=== PATIENT | female | born 1940 | race Caucasian/White ===

== ENCOUNTER 2021-01-07 05:44 | Day surgery (SDC) | payer MEDICARE, BC ==
[2021-01-06 11:24] VITALS: BMI 25.7
[2021-01-07] MEDS ORDERED: Lidocaine 1% MPF 2 ML VIAL ONE (06:29)
[2021-01-07] MEDS ORDERED: Lidocaine 1% PF 5 ML VIAL ONE (07:30)
[2021-01-07] MEDS ORDERED: PROPOFOL 20 ML ONE (07:30)
== END 2021-01-07 09:00 | disposition home or self-care (01) ==
LOC: CSHSDC 05:44
PROVIDERS: ATTEND Internal Medicine Gastroenterology
DX: K29.50 Unspecified chronic gastritis without bleeding (principal); B96.81 Helicobacter pylori [H. pylori] as the cause of diseases classified elsewhere; K31.7 Polyp of stomach and duodenum; Z85.028 Personal history of other malignant neoplasm of stomach
CPT/HCPCS: 88305; 88312; J2704

== ENCOUNTER 2021-06-15 11:34 | Outpatient (CLI) | payer MEDICARE, BC | END 2021-06-15 11:35 | disposition home or self-care (01) | LOC: CSHMAMMO 11:34 | PROVIDERS: ATTEND Family Medicine | DX: Q83.8 Other congenital malformations of breast (principal) | CPT/HCPCS: 77065; G0279 ==

== ENCOUNTER 2021-11-09 11:06 | Inpatient (IN) | payer MEDICARE, BC ==
[2021-11-09 12:45] LABS: Hemoglobin 12.1 g/dL (12.0-15.5); Mean Corpuscular HGB CONC 31.1 g/dL (32.0-36.0); Mean Corpuscular Hemoglobin 28.1 pg (27.0-33.0); Mean Corpuscular Volume 90.3 fl (81.6-98.3); Mean Platelet Volume 11.3 fl (7.4-10.4); Platelet Count 413 10x3/uL (150-450); RBC Distribution Width 15.8 % (11.5-14.5); Red Blood Cell (RBC) Count 4.31 10x6/uL (3.90-5.03); White Blood Cell (WBC) Count 17.5 10x3/uL (3.5-10.5)
[2021-11-09 12:46] LABS: MDiff Complete? YES
[2021-11-09 13:06] LABS: ALT (SGPT) 21 U/L (8-55); AST (SGOT) 20 U/L (5-34); Albumin 2.9 g/dL (3.4-4.8); Alkaline Phosphatase 105 U/L (40-110); Anion Gap 16 mmol/L (10-20); BUN (Urea Nitrogen) 38 mg/dL (9.8-20.1); Band 4 % (5-11); Bilirubin, Total 0.3 mg/dL (0.2-1.2); Calc. Creatinine Clearance 0 mL/min (70-130); Calcium 7.6 mg/dL (7.8-10.44); Carbon Dioxide 16 mmol/L (23-31); Chloride 111 mmol/L (98-107); Globulin 2.2 g/dL (2.4-3.5); Glucose 132 mg/dL (83-110); Lymphocytes 3 % (21-51); Metamyelocyte 1 % (0-0); Monocytes 3 % (0-10); Neutrophil 89 % (42-75); Platelet Morphology Comment Appears Increased; Potassium 4.4 mmol/L (3.5-5.1); Protein, Total 5.1 g/dL (5.8-8.1); Sodium 139 mmol/L (136-145); Toxic Granulation SLIGHT
[2021-11-09] MEDS ORDERED: Vancomycin 25 MG/ML Oral SOLN PO SCH (13:45)
[2021-11-09 16:40] LABS: Bilirubin Neg (Negative); Blood, Urine 10 (Negative); Clarity Clear (Clear); Glucose, Urine (Dipstick) Normal (Negative); Ketone, Urine Negative (Negative); Leukocyte Negative (Negative); Nitrite Negative (Negative); Protein, Urine (Dipstick) 30 mg/dl (Neg-Trace); Urobilinogen Normal mg/dL (Less than 2)
[2021-11-09 16:46] LABS: Bacteria/HPF None Seen HPF (None Seen); WBC/HPF 0-3 HPF (0-3)
[2021-11-09] MEDS ORDERED: Vancomycin 1 GM in Premix Bag 1 BAG IVPB SCH (18:15)
[2021-11-09] MEDS ORDERED: Acetaminophen 650 MG Suppository PR PRN (18:16)
[2021-11-09] MEDS ORDERED: Acetaminophen 325 MG TAB ONE (18:41)
[2021-11-09 19:21] LABS: Lactic Acid 2.3 mmol/L (0.5-2.2)
[2021-11-09 19:57] VITALS: BMI 25.9
[2021-11-09] MEDS ORDERED: Cefepime 2 GM in Sodium Chloride 0.9% 100 ML IVPB SCH (21:00)
[2021-11-09] MEDS: Vancomycin 25 MG/ML Oral SOLN PO SCH (21:43)
[2021-11-09 21:45] LABS: SARS-CoV-2 PCR by NAA Not Detected (NotDetected)
[2021-11-09] MEDS: Sodium Chloride 0.9% 1,000 ML IV SCH (21:47)
[2021-11-10] MEDS: Acetaminophen 325 MG TAB PO PRN ×3 (01:06→15:57)
[2021-11-10] MEDS: Vancomycin 25 MG/ML Oral SOLN PO SCH ×4 (02:56→20:45)
[2021-11-10 05:01] LABS: Anion Gap 12 mmol/L (10-20); BUN (Urea Nitrogen) 29 mg/dL (9.8-20.1); Calc. Creatinine Clearance 37 mL/min (70-130); Carbon Dioxide 16 mmol/L (23-31); Chloride 109 mmol/L (98-107); Glucose 140 mg/dL (83-110); Potassium 3.7 mmol/L (3.5-5.1); Sodium 133 mmol/L (136-145)
[2021-11-10 06:51] LABS: Hemoglobin 10.7 g/dL (12.0-15.5); Mean Corpuscular HGB CONC 32.1 g/dL (32.0-36.0); Mean Corpuscular Hemoglobin 28.7 pg (27.0-33.0); Mean Corpuscular Volume 89.3 fl (81.6-98.3); Mean Platelet Volume 11.4 fl (7.4-10.4); Platelet Count 359 10x3/uL (150-450); RBC Distribution Width 15.4 % (11.5-14.5); Red Blood Cell (RBC) Count 3.73 10x6/uL (3.90-5.03); White Blood Cell (WBC) Count 18.2 10x3/uL (3.5-10.5)
[2021-11-10 06:52] LABS: MDiff Complete? YES
[2021-11-10 06:55] LABS: Band 10 % (5-11); Lymphocytes 5 % (21-51); Monocytes 7 % (0-10); Neutrophil 78 % (42-75)
[2021-11-10 06:56] LABS: Platelet Morphology Comment Appears Adequate; RBC Morphology Normal
[2021-11-10] MEDS: Sodium Chloride 0.9% 1,000 ML IV SCH ×4 (09:32→20:51)
[2021-11-11] MEDS: Vancomycin 25 MG/ML Oral SOLN PO SCH ×4 (03:00→20:57)
[2021-11-11 06:03] LABS: Anion Gap 12 mmol/L (10-20); BUN (Urea Nitrogen) 16 mg/dL (9.8-20.1); Calc. Creatinine Clearance 49 mL/min (70-130); Carbon Dioxide 16 mmol/L (23-31); Chloride 110 mmol/L (98-107); Glucose 130 mg/dL (83-110); Potassium 3.5 mmol/L (3.5-5.1); Sodium 134 mmol/L (136-145)
[2021-11-11 07:01] LABS: Hemoglobin 10.9 g/dL (12.0-15.5); Mean Corpuscular HGB CONC 31.9 g/dL (32.0-36.0); Mean Corpuscular Hemoglobin 28.2 pg (27.0-33.0); Mean Corpuscular Volume 88.6 fl (81.6-98.3); Mean Platelet Volume 11.2 fl (7.4-10.4); Platelet Count 356 10x3/uL (150-450); RBC Distribution Width 15.5 % (11.5-14.5); Red Blood Cell (RBC) Count 3.86 10x6/uL (3.90-5.03)
[2021-11-11 07:16] LABS: MDiff Complete? YES
[2021-11-11 08:00] LABS: Band 12 % (5-11); Lymphocytes 2 % (21-51); Monocytes 5 % (0-10); Neutrophil 81 % (42-75); Nucleated RBC 1 % (0); Platelet Morphology Comment Appears Adequate
[2021-11-11 08:02] LABS: RBC Morphology NORMAL
[2021-11-11] MEDS: Sodium Chloride 0.9% 1,000 ML IV SCH ×3 (08:50→21:00)
[2021-11-11] MEDS: Metoprolol Tartrate 25 MG TAB PO SCH ×3 (08:50→21:46)
[2021-11-11] MEDS: Acetaminophen 325 MG TAB PO PRN (16:30)
[2021-11-11] MEDS: Atorvastatin Calcium 40 MG TAB PO SCH (20:58)
[2021-11-11] MEDS ORDERED: busPIRone HCl 15 MG TAB PO SCH (21:00)
[2021-11-11] MEDS ORDERED: Pantoprazole 40 MG VIAL IVP SCH (23:45)
[2021-11-12] MEDS: Acetaminophen 325 MG TAB PO PRN ×2 (00:49→22:02)
[2021-11-12] MEDS: Vancomycin 25 MG/ML Oral SOLN PO SCH ×5 (03:59→22:04)
[2021-11-12 04:49] LABS: Hemoglobin 10.1 g/dL (12.0-15.5); Mean Corpuscular HGB CONC 30.8 g/dL (32.0-36.0); Mean Corpuscular Hemoglobin 27.8 pg (27.0-33.0); Mean Corpuscular Volume 90.4 fl (81.6-98.3); Mean Platelet Volume 10.8 fl (7.4-10.4); Platelet Count 329 10x3/uL (150-450); RBC Distribution Width 15.6 % (11.5-14.5); Red Blood Cell (RBC) Count 3.63 10x6/uL (3.90-5.03); White Blood Cell (WBC) Count 23.2 10x3/uL (3.5-10.5)
[2021-11-12 05:03] LABS: Anion Gap 12 mmol/L (10-20); BUN (Urea Nitrogen) 13 mg/dL (9.8-20.1); Calc. Creatinine Clearance 52 mL/min (70-130); Calcium 6.9 mg/dL (7.8-10.44); Carbon Dioxide 13 mmol/L (23-31); Chloride 113 mmol/L (98-107); Glucose 146 mg/dL (83-110); Magnesium 1.8 mg/dL (1.6-2.6); Potassium 3.7 mmol/L (3.5-5.1); Sodium 134 mmol/L (136-145)
[2021-11-12 05:05] LABS: ALT (SGPT) 12 U/L (8-55); AST (SGOT) 19 U/L (5-34); Alkaline Phosphatase 88 U/L (40-110); Bilirubin, Direct 0.1 mg/dL (0.1-0.3); Bilirubin, Total 0.3 mg/dL (0.2-1.2); Phosphorus 2.1 mg/dL (2.3-4.7); Protein, Total 3.9 g/dL (5.8-8.1)
[2021-11-12 05:21] LABS: MDiff Complete? YES
[2021-11-12 05:24] LABS: Band 18 % (5-11); Lymphocytes 3 % (21-51); Monocytes 4 % (0-10); Neutrophil 75 % (42-75)
[2021-11-12 05:26] LABS: Platelet Morphology Comment Appears Adequate; RBC Morphology Normal
[2021-11-12] MEDS ORDERED: Levothyroxine Sodium 50 MCG TAB PO SCH (06:00)
[2021-11-12] MEDS: Sodium Chloride 0.9% 1,000 ML IV SCH ×2 (06:15→09:37)
[2021-11-12] MEDS ORDERED: Enoxaparin Sodium 40 MG/0.4 ML SYRINGE SC SCH (09:00)
[2021-11-12] MEDS ORDERED: Escitalopram Oxalate 10 mg Tablet PO SCH (09:00)
[2021-11-12] MEDS: Escitalopram Oxalate 10 mg Tablet PO SCH (09:36)
[2021-11-12] MEDS: Metoprolol Tartrate 25 MG TAB PO SCH ×2 (09:36→22:03)
[2021-11-12] MEDS: Albumin 25% 25 GM/100 ML BOT IVPB SCH ×3 (09:36→22:03)
[2021-11-12] MEDS: busPIRone HCl 15 MG TAB PO SCH ×2 (09:36→22:02)
[2021-11-12] MEDS: Lactated Ringer's 1,000 ML IV SCH (14:25)
[2021-11-12 14:38] LABS: Actual Bicarbonate (HCO3a) 15.2 mEq/L (22-28); Base Excess (BEa) -8.1 mEq/L (-2.0 to +3.0); CO2 Tension 24.1 mmHg (35.0-45.0); Calcium, Ionized (arterial) 1.09 mmol/L (1.12-1.30); Carboxyhemoglobin (COHb) 1.5 gm% (0.0-3.0); Hemoglobin (Hb) 9.3 g/dL (12.0-16.0); O2 Tension (PaO2), arterial 86.3 mmHg (> 60.0); Potassium - ABG Lab 3.1 mmol/L (3.70-5.30); Puncture Site RRA; pH, Arterial 7.42 (7.35-7.45)
[2021-11-12 14:42] LABS: ALV-art Gradient 33.305 mmHg (0-20)
[2021-11-12 14:43] LABS: Lactic Acid 2.4 mmol/L (0.5-2.2)
[2021-11-12] MEDS: Gabapentin 300 MG CAP PO SCH (22:01)
[2021-11-12] MEDS: Pantoprazole 40 MG VIAL IVP SCH (22:01)
[2021-11-12] MEDS: Atorvastatin Calcium 40 MG TAB PO SCH (22:03)
[2021-11-13] MEDS: Lactated Ringer's 1,000 ML IV SCH ×2 (01:24→08:56)
[2021-11-13] MEDS: Albumin 25% 25 GM/100 ML BOT IVPB SCH (02:50)
[2021-11-13] MEDS: Vancomycin 25 MG/ML Oral SOLN PO SCH ×4 (02:50→22:22)
[2021-11-13] MEDS: Acetaminophen 325 MG TAB PO PRN ×2 (03:37→21:41)
[2021-11-13 04:33] LABS: Anion Gap 11 mmol/L (10-20); BUN (Urea Nitrogen) 8 mg/dL (9.8-20.1); Calc. Creatinine Clearance 54 mL/min (70-130); Calcium 7.1 mg/dL (7.8-10.44); Carbon Dioxide 15 mmol/L (23-31); Chloride 113 mmol/L (98-107); Glucose 142 mg/dL (83-110); Magnesium 1.9 mg/dL (1.6-2.6); Sodium 136 mmol/L (136-145)
[2021-11-13 04:52] LABS: ALT (SGPT) 7 U/L (8-55); AST (SGOT) 15 U/L (5-34); Albumin 3.1 g/dL (3.4-4.8); Alkaline Phosphatase 53 U/L (40-110); Bilirubin, Direct 0.3 mg/dL (0.1-0.3); Bilirubin, Total 0.6 mg/dL (0.2-1.2); Phosphorus 1.3 mg/dL (2.3-4.7); Protein, Total 4.4 g/dL (5.8-8.1)
[2021-11-13 04:57] LABS: Hemoglobin 8.8 g/dL (12.0-15.5); Mean Corpuscular Volume 90.4 fl (81.6-98.3); Mean Platelet Volume 10.5 fl (7.4-10.4); Platelet Count 301 10x3/uL (150-450); RBC Distribution Width 15.6 % (11.5-14.5); Red Blood Cell (RBC) Count 3.14 10x6/uL (3.90-5.03); White Blood Cell (WBC) Count 14.5 10x3/uL (3.5-10.5)
[2021-11-13 04:59] LABS: MDiff Complete? YES
[2021-11-13 05:42] LABS: Band 10 % (5-11); Lymphocytes 6 % (21-51); Monocytes 5 % (0-10); Neutrophil 79 % (42-75)
[2021-11-13] MEDS ORDERED: Potassium Phosphate 30 MMOL in Sodium Chloride 0.9% 500 ML IVPB SCH (06:00)
[2021-11-13] MEDS: Levothyroxine Sodium 50 MCG TAB PO SCH (06:09)
[2021-11-13] MEDS: Metoprolol Tartrate 25 MG TAB PO SCH ×2 (08:56→21:42)
[2021-11-13] MEDS: Escitalopram Oxalate 10 mg Tablet PO SCH (08:56)
[2021-11-13] MEDS: busPIRone HCl 15 MG TAB PO SCH ×2 (08:57→21:42)
[2021-11-13] MEDS ORDERED: diphenhydrAMINE 12.5 MG in Sodium Chloride 0.9% 50 ML IVPB PRN (12:09)
[2021-11-13] MEDS: diphenhydrAMINE 50 MG/ML VIAL IVP PRN ×2 (15:03→21:37)
[2021-11-13] MEDS: metroNIDAZOLE 500 MG in Premix Bag 1 BAG IVPB SCH ×2 (15:04→21:41)
[2021-11-13] MEDS ORDERED: Furosemide 20 MG/2 ML VIAL SLOW IVP SCH (15:15)
[2021-11-13] MEDS ORDERED: Potassium Chloride 20 MEQ TAB PO SCH (15:30)
[2021-11-13] MEDS: Gabapentin 300 MG CAP PO SCH (21:41)
[2021-11-13] MEDS: Atorvastatin Calcium 40 MG TAB PO SCH (21:42)
[2021-11-13] MEDS: Pantoprazole 40 MG VIAL IVP SCH (21:43)
[2021-11-14] MEDS: metroNIDAZOLE 500 MG in Premix Bag 1 BAG IVPB SCH ×3 (04:17→21:03)
[2021-11-14] MEDS: Vancomycin 25 MG/ML Oral SOLN PO SCH ×4 (04:17→21:04)
[2021-11-14] MEDS: diphenhydrAMINE 50 MG/ML VIAL IVP PRN (04:20)
[2021-11-14 05:05] LABS: Hemoglobin 10.6 g/dL (12.0-15.5); Mean Corpuscular HGB CONC 32.2 g/dL (32.0-36.0); Mean Corpuscular Hemoglobin 28.3 pg (27.0-33.0); Mean Corpuscular Volume 87.7 fl (81.6-98.3); Mean Platelet Volume 9.9 fl (7.4-10.4); Platelet Count 345 10x3/uL (150-450); RBC Distribution Width 15.6 % (11.5-14.5); Red Blood Cell (RBC) Count 3.75 10x6/uL (3.90-5.03)
[2021-11-14 05:22] LABS: Anion Gap 12 mmol/L (10-20); BUN (Urea Nitrogen) 6 mg/dL (9.8-20.1); Calc. Creatinine Clearance 54 mL/min (70-130); Calcium 7.3 mg/dL (7.8-10.44); Carbon Dioxide 17 mmol/L (23-31); Chloride 111 mmol/L (98-107); Glucose 120 mg/dL (83-110); Magnesium 1.7 mg/dL (1.6-2.6); Potassium 3.2 mmol/L (3.5-5.1); Sodium 137 mmol/L (136-145)
[2021-11-14 05:30] LABS: ALT (SGPT) 9 U/L (8-55); AST (SGOT) 19 U/L (5-34); Alkaline Phosphatase 60 U/L (40-110); Bilirubin, Direct 0.3 mg/dL (0.1-0.3); Bilirubin, Total 0.6 mg/dL (0.2-1.2); Phosphorus 1.8 mg/dL (2.3-4.7); Protein, Total 4.6 g/dL (5.8-8.1)
[2021-11-14 05:58] LABS: MDiff Complete? YES
[2021-11-14 06:01] LABS: Band 23 % (5-11); Eosinophils 4 % (0-10); Lymphocytes 2 % (21-51); Metamyelocyte 2 % (0-0); Monocytes 5 % (0-10); Myelocyte 1 % (0-0); Neutrophil 62 % (42-75); Reactive Lymphocytes 1 % (0-10)
[2021-11-14 06:02] LABS: Dohle Bodies SLIGHT; Platelet Morphology Comment Appears Adequate; Toxic Granulation SLIGHT
[2021-11-14 06:03] LABS: RBC Morphology Normal
[2021-11-14] MEDS ORDERED: Potassium Phosphate 30 MMOL in Sodium Chloride 0.9% 500 ML IVPB SCH (06:15)
[2021-11-14] MEDS: Levothyroxine Sodium 50 MCG TAB PO SCH (06:21)
[2021-11-14] MEDS: Acetaminophen 325 MG TAB PO PRN ×3 (06:21→22:54)
[2021-11-14] MEDS: Metoprolol Tartrate 25 MG TAB PO SCH ×2 (08:48→21:04)
[2021-11-14] MEDS: busPIRone HCl 15 MG TAB PO SCH ×2 (08:48→21:05)
[2021-11-14] MEDS: Escitalopram Oxalate 10 mg Tablet PO SCH (08:48)
[2021-11-14] MEDS: Gabapentin 300 MG CAP PO SCH (21:04)
[2021-11-14] MEDS: Atorvastatin Calcium 40 MG TAB PO SCH (21:05)
[2021-11-15] MEDS: metroNIDAZOLE 500 MG in Premix Bag 1 BAG IVPB SCH ×3 (04:08→19:46)
[2021-11-15] MEDS: Levothyroxine Sodium 50 MCG TAB PO SCH (05:32)
[2021-11-15] MEDS: Vancomycin 25 MG/ML Oral SOLN PO SCH ×4 (05:32→21:54)
[2021-11-15 05:36] LABS: Hemoglobin 10.3 g/dL (12.0-15.5); Mean Corpuscular HGB CONC 32.8 g/dL (32.0-36.0); Mean Corpuscular Hemoglobin 28.3 pg (27.0-33.0); Mean Corpuscular Volume 86.3 fl (81.6-98.3); Mean Platelet Volume 9.9 fl (7.4-10.4); Platelet Count 343 10x3/uL (150-450); RBC Distribution Width 15.6 % (11.5-14.5); Red Blood Cell (RBC) Count 3.64 10x6/uL (3.90-5.03)
[2021-11-15] MEDS: Acetaminophen 325 MG TAB PO PRN ×2 (05:53→14:06)
[2021-11-15 05:56] LABS: MDiff Complete? YES
[2021-11-15 06:02] LABS: Band 14 % (5-11); Eosinophils 7 % (0-10); Lymphocytes 10 % (21-51); Monocytes 2 % (0-10); Myelocyte 1 % (0-0); Neutrophil 61 % (42-75); Reactive Lymphocytes 5 % (0-10)
[2021-11-15 06:03] LABS: Anion Gap 9 mmol/L (10-20); BUN (Urea Nitrogen) 8 mg/dL (9.8-20.1); Calc. Creatinine Clearance 59 mL/min (70-130); Calcium 7.1 mg/dL (7.8-10.44); Carbon Dioxide 18 mmol/L (23-31); Chloride 112 mmol/L (98-107); Glucose 106 mg/dL (83-110); Magnesium 1.5 mg/dL (1.6-2.6); Phosphorus 2.7 mg/dL (2.3-4.7); Potassium 3.1 mmol/L (3.5-5.1); Sodium 136 mmol/L (136-145)
[2021-11-15 06:04] LABS: Platelet Morphology Comment Appears Adequate
[2021-11-15 06:05] LABS: Dohle Bodies SLIGHT; Large Platelets SLIGHT; RBC Morphology Normal
[2021-11-15] MEDS ORDERED: Magnesium Sulfate 2 GM in Sodium Chloride 0.9% 100 ML IVPB SCH (07:45)
[2021-11-15] MEDS ORDERED: Magnesium 2 GM/50 ML BAG (IN WATER) ONE (07:51)
[2021-11-15] MEDS: busPIRone HCl 15 MG TAB PO SCH ×2 (07:54→20:01)
[2021-11-15] MEDS: Metoprolol Tartrate 25 MG TAB PO SCH ×2 (07:55→20:01)
[2021-11-15] MEDS: Escitalopram Oxalate 10 mg Tablet PO SCH (07:55)
[2021-11-15] MEDS ORDERED: Magnesium 2 GM/50 ML 2 GM in Premix Bag 1 BAG IVPB SCH (08:00)
[2021-11-15] MEDS ORDERED: Potassium Chloride 20 MEQ TAB PO SCH (08:00)
[2021-11-15] MEDS: Ondansetron ODT 4 MG TAB PO PRN (15:58)
[2021-11-15] MEDS ORDERED: Electrolyte Replacement Protocol 1 EACH FS PRN (16:46)
[2021-11-15] MEDS: Gabapentin 300 MG CAP PO SCH (20:01)
[2021-11-15] MEDS: Atorvastatin Calcium 40 MG TAB PO SCH (20:01)
[2021-11-15] MEDS: Ondansetron PF 4 MG/2 ML Vial IVP PRN (21:54)
[2021-11-16] MEDS: Acetaminophen 325 MG TAB PO PRN ×3 (02:15→21:22)
[2021-11-16] MEDS: Vancomycin 25 MG/ML Oral SOLN PO SCH ×4 (03:48→21:24)
[2021-11-16] MEDS: metroNIDAZOLE 500 MG in Premix Bag 1 BAG IVPB SCH ×3 (03:48→21:24)
[2021-11-16 05:04] LABS: Magnesium 2.1 mg/dL (1.6-2.6); Potassium 4.2 mmol/L (3.5-5.1)
[2021-11-16] MEDS: Levothyroxine Sodium 50 MCG TAB PO SCH (05:43)
[2021-11-16] MEDS: Metoprolol Tartrate 25 MG TAB PO SCH ×2 (09:46→21:22)
[2021-11-16] MEDS: Escitalopram Oxalate 10 mg Tablet PO SCH (09:46)
[2021-11-16] MEDS: busPIRone HCl 15 MG TAB PO SCH ×2 (09:46→21:22)
[2021-11-16] MEDS: Ondansetron PF 4 MG/2 ML Vial IVP PRN ×2 (09:53→14:06)
[2021-11-16] MEDS ORDERED: Ketorolac Tromethamine 30 MG/ML VIAL IVP SCH (14:30)
[2021-11-16] MEDS: Gabapentin 300 MG CAP PO SCH (21:22)
[2021-11-16] MEDS: diphenhydrAMINE 50 MG/ML VIAL IVP PRN (21:23)
[2021-11-16] MEDS: Atorvastatin Calcium 40 MG TAB PO SCH (21:23)
[2021-11-16] MEDS: Ondansetron ODT 4 MG TAB PO PRN (21:23)
[2021-11-17] MEDS: metroNIDAZOLE 500 MG in Premix Bag 1 BAG IVPB SCH ×2 (03:54→11:37)
[2021-11-17] MEDS: Vancomycin 25 MG/ML Oral SOLN PO SCH ×3 (03:54→15:44)
[2021-11-17] MEDS: diphenhydrAMINE 50 MG/ML VIAL IVP PRN ×2 (03:54→11:37)
[2021-11-17 04:36] LABS: Hemoglobin 10.2 g/dL (12.0-15.5); Mean Corpuscular HGB CONC 31.1 g/dL (32.0-36.0); Mean Corpuscular Hemoglobin 27.8 pg (27.0-33.0); Mean Corpuscular Volume 89.4 fl (81.6-98.3); Platelet Count 451 10x3/uL (150-450); RBC Distribution Width 15.6 % (11.5-14.5); Red Blood Cell (RBC) Count 3.67 10x6/uL (3.90-5.03); White Blood Cell (WBC) Count 11.9 10x3/uL (3.5-10.5)
[2021-11-17 05:01] LABS: Anion Gap 10 mmol/L (10-20); BUN (Urea Nitrogen) 10 mg/dL (9.8-20.1); Calc. Creatinine Clearance 57 mL/min (70-130); Calcium 7.3 mg/dL (7.8-10.44); Carbon Dioxide 19 mmol/L (23-31); Chloride 109 mmol/L (98-107); Glucose 88 mg/dL (83-110); Magnesium 1.9 mg/dL (1.6-2.6); Phosphorus 2.9 mg/dL (2.3-4.7); Potassium 4.1 mmol/L (3.5-5.1); Sodium 134 mmol/L (136-145)
[2021-11-17] MEDS: Levothyroxine Sodium 50 MCG TAB PO SCH (06:02)
[2021-11-17 06:05] LABS: MDiff Complete? YES
[2021-11-17 06:07] LABS: Platelet Morphology Comment Appears Increased; Schistocytes SLIGHT = 2-5 cells (100X) (0-1/hpf)
[2021-11-17 06:15] LABS: Eosinophils 2 % (0-10); Lymphocytes 12 % (21-51); Monocytes 9 % (0-10); Neutrophil 76 % (42-75)
[2021-11-17] MEDS ORDERED: Magnesium 2 GM/50 ML 2 GM in Premix Bag 1 BAG IVPB SCH (07:00)
[2021-11-17] MEDS: Ondansetron PF 4 MG/2 ML Vial IVP PRN (09:17)
[2021-11-17] MEDS: busPIRone HCl 15 MG TAB PO SCH (09:26)
[2021-11-17] MEDS: Metoprolol Tartrate 25 MG TAB PO SCH (09:27)
[2021-11-17] MEDS: Escitalopram Oxalate 10 mg Tablet PO SCH (09:27)
[2021-11-17] MEDS: Acetaminophen 325 MG TAB PO PRN (11:26)
[2021-11-17 16:39] VITALS: BP 128/69; TEMP 97
[2021-11-17 20:52] LABS: SARS-CoV-2 PCR by NAA Not Detected (NotDetected)
== END 2021-11-17 16:48 | disposition home health service (06) | DRG 871 ==
LOC: CSHERS 11:06 → CSHTELE 19:45 → OBSVTOIN 19:45
PROVIDERS: ADMIT Internal Medicine; ATTEND Internal Medicine
DX: A41.4 Sepsis due to anaerobes (principal); G93.41 Metabolic encephalopathy; N17.9 Acute kidney failure, unspecified; A04.72 Enterocolitis due to Clostridium difficile, not specified as recurrent; E87.2 Acidosis; I48.11 Longstanding persistent atrial fibrillation; J81.1 Chronic pulmonary edema; R65.20 Severe sepsis without septic shock; Z20.822 Contact with and (suspected) exposure to COVID-19; I10 Essential (primary) hypertension; M81.0 Age-related osteoporosis without current pathological fracture; E78.5 Hyperlipidemia, unspecified; K21.9 Gastro-esophageal reflux disease without esophagitis; F41.9 Anxiety disorder, unspecified; F32.A Depression, unspecified; E03.9 Hypothyroidism, unspecified; E88.09 Other disorders of plasma-protein metabolism, not elsewhere classified; E87.6 Hypokalemia; E83.39 Other disorders of phosphorus metabolism; E86.0 Dehydration; Z90.49 Acquired absence of other specified parts of digestive tract; Z85.028 Personal history of other malignant neoplasm of stomach; Z88.8 Allergy status to other drugs, medicaments and biological substances; Z91.041 Radiographic dye allergy status; Z88.2 Allergy status to sulfonamides; Z79.82 Long term (current) use of aspirin; Z79.899 Other long term (current) drug therapy; Z79.890 Hormone replacement therapy; Z87.442 Personal history of urinary calculi; Z90.5 Acquired absence of kidney; Z98.51 Tubal ligation status; Z90.710 Acquired absence of both cervix and uterus; Z90.89 Acquired absence of other organs
CPT/HCPCS: 36415; 36600; 51701; 70450; 71045; 72125; 74176; 80048; 80053; 80076; 81003; 81015; 82805; 83605; 83735; 84100; 84132; 84443; 84484; 85025; 87040; 87045; 87046; 87324; 87427; 87449; 93005; 93306; 94760; C9113; G0378; J1200; J1885; J1940; J1956; J2405; J3475; J7030; J7050; J7120; P9047; Q0162; U0003; U0005

== ENCOUNTER 2022-12-18 17:03 | Outpatient (CLI) | payer MEDICARE, BC | END 2022-12-18 17:04 | disposition home or self-care (01) | LOC: CSHRAD 17:03 | PROVIDERS: ATTEND Family Medicine | DX: M54.50 Low back pain, unspecified (principal); M47.816 Spondylosis without myelopathy or radiculopathy, lumbar region; M41.86 Other forms of scoliosis, lumbar region; Q76.49 Other congenital malformations of spine, not associated with scoliosis | CPT/HCPCS: 72110 ==

== ENCOUNTER 2023-01-22 10:40 | Day surgery (SDC) | payer MEDICARE, BC ==
[2023-01-22] MEDS ORDERED: PROPOFOL 160 ML ONE (11:57)
== END 2023-01-22 13:17 | disposition home or self-care (01) ==
LOC: CSHSDC 10:40
PROVIDERS: ATTEND Urology
PROC: 0D758ZZ Dilation of Esophagus, Via Natural or Artificial Opening Endoscopic (ICD-10-PCS; principal; 2023-01-22)
PROC: 0DB68ZX Excision of Stomach, Via Natural or Artificial Opening Endoscopic, Diagnostic (ICD-10-PCS; 2023-01-22)
DX: K31.89 Other diseases of stomach and duodenum (principal); K21.9 Gastro-esophageal reflux disease without esophagitis; K25.9 Gastric ulcer, unspecified as acute or chronic, without hemorrhage or perforation; K29.70 Gastritis, unspecified, without bleeding; K31.7 Polyp of stomach and duodenum; I10 Essential (primary) hypertension; F32.A Depression, unspecified; M85.80 Other specified disorders of bone density and structure, unspecified site; F41.9 Anxiety disorder, unspecified; Z90.49 Acquired absence of other specified parts of digestive tract; Z85.028 Personal history of other malignant neoplasm of stomach; Z79.899 Other long term (current) drug therapy
CPT/HCPCS: 88305; J2704

== ENCOUNTER 2023-06-21 10:11 | Outpatient (CLI) | payer MEDICARE, BC | END 2023-06-21 10:12 | disposition home or self-care (01) | LOC: CSHMAMMO 10:11 | PROVIDERS: ATTEND Family Medicine | DX: Z12.31 Encounter for screening mammogram for malignant neoplasm of breast (principal); Z90.11 Acquired absence of right breast and nipple; Z90.12 Acquired absence of left breast and nipple | CPT/HCPCS: 77063; 77067 ==

== ENCOUNTER 2023-09-21 07:55 | Day surgery (SDC) | payer MEDICARE, BC ==
[2023-09-20 11:27] VITALS: BMI 24.6
[2023-09-21] MEDS ORDERED: PROPOFOL 20 ML ONE (11:23)
== END 2023-09-21 12:48 | disposition home or self-care (01) ==
LOC: CSHSDC 07:55
PROVIDERS: ATTEND Internal Medicine Gastroenterology
PROC: 0DB68ZX Excision of Stomach, Via Natural or Artificial Opening Endoscopic, Diagnostic (ICD-10-PCS; principal; 2023-09-21)
DX: K57.30 Diverticulosis of large intestine without perforation or abscess without bleeding (principal); K25.9 Gastric ulcer, unspecified as acute or chronic, without hemorrhage or perforation; K29.50 Unspecified chronic gastritis without bleeding; K31.7 Polyp of stomach and duodenum; K31.89 Other diseases of stomach and duodenum; K31.A0 Gastric intestinal metaplasia, unspecified; M19.90 Unspecified osteoarthritis, unspecified site; I10 Essential (primary) hypertension; E78.5 Hyperlipidemia, unspecified; F41.9 Anxiety disorder, unspecified; Z79.899 Other long term (current) drug therapy
CPT/HCPCS: 88305; 88342; J2704

== ENCOUNTER 2023-12-17 20:37 | Observation (INO) | payer MEDICARE, BC ==
[2023-12-17 22:03] LABS: #Monocytes 0.9 10x3/uL (0.0-1.1); #Neutrophils 13.8 10x3/uL (1.5-8.4); %Basophils 0.2 % (0.0-2.0); %Eosinophils 0.3 % (0.0-6.0); %Lymphocytes 5.2 % (18.0-47.0); %Monocytes 5.7 % (0.0-10.0); %Neutrophils 87.5 % (40.0-75.0); Hematocrit 31.3 % (34.9-44.5); Hemoglobin 9.8 g/dL (12.0-15.5); Mean Corpuscular HGB CONC 31.3 g/dL (32.0-36.0); Mean Corpuscular Hemoglobin 26.9 pg (27.0-33.0); Mean Platelet Volume 11.7 fl (7.4-10.4); Platelet Count 251 10x3/uL (150-450); RBC Distribution Width 16.3 % (11.5-14.5); Red Blood Cell (RBC) Count 3.64 10x6/uL (3.90-5.03); White Blood Cell (WBC) Count 15.8 10x3/uL (3.5-10.5)
[2023-12-17 22:19] LABS: ALT (SGPT) 201 U/L (8-55); AST (SGOT) 146 U/L (5-34); Albumin 3.4 g/dL (3.4-4.8); Alkaline Phosphatase 465 U/L (40-110); Anion Gap 15 mmol/L (10-20); BUN (Urea Nitrogen) 26 mg/dL (9.8-20.1); Bilirubin, Total 1.2 mg/dL (0.2-1.2); Calc. Creatinine Clearance 0 mL/min (70-130); Calcium 8.7 mg/dL (7.8-10.44); Carbon Dioxide 23 mmol/L (23-31); Chloride 101 mmol/L (98-107); Estimated GFR 70; Globulin 2.8 g/dL (2.4-3.5); Glucose 91 mg/dL (83-110); Lipase 8 U/L (8-78); Potassium 3.5 mmol/L (3.5-5.1); Protein, Total 6.2 g/dL (5.8-8.1); Sodium 135 mmol/L (136-145)
[2023-12-17] MEDS ORDERED: Piperacillin/Tazobactam 3.375 GM VIAL ONE (23:17)
[2023-12-18 01:24] VITALS: BMI 24.4
[2023-12-18] MEDS ORDERED: fentaNYL 50 mcg/mL 1 mL Vial SLOW IVP PRN (02:00)
[2023-12-18] MEDS ORDERED: Ondansetron PF 4 MG/2 ML Vial IVP PRN ×2 (02:01→11:03)
[2023-12-18] MEDS ORDERED: Ondansetron ODT 4 MG TAB PO PRN (02:02)
[2023-12-18] MEDS: Sodium Chloride 0.9% 1,000 ML IV SCH (06:15)
[2023-12-18] MEDS ORDERED: Calcium Carbonate 500 MG ChewTAB PO PRN (11:03)
[2023-12-18] MEDS ORDERED: Dextrose 50% Abboject 50 ML SYRINGE SLOW IVP PRN (11:03)
[2023-12-18] MEDS ORDERED: Glucagon 1 MG/ML KIT IM PRN (11:03)
[2023-12-18] MEDS ORDERED: Ipratropium/Albuterol 3 ML NEB NEB PRN (11:03)
[2023-12-18] MEDS ORDERED: Dextrose 5% in Water 1,000 ML IV PRN (11:03)
[2023-12-18] MEDS ORDERED: Mag-Al 1200 mg/1200 mg/30 ML UDCUP PO PRN (11:03)
[2023-12-18] MEDS ORDERED: hydrALAZINE 20 MG/ML VIAL SLOW IVP PRN (11:03)
[2023-12-18] MEDS: Ketorolac Tromethamine 30 MG (1 mL) VIAL IVP SCH (11:35)
[2023-12-18] MEDS: D5 1/2 NS w/20 mEq KCL 1,000 ML IV SCH (11:36)
[2023-12-18] MEDS ORDERED: Bupivacaine 0.25% HCL 30 ML VIAL ONE (15:48)
[2023-12-18] MEDS ORDERED: EPINEPHrine 1 MG/ML VIAL ONE (15:48)
[2023-12-18] MEDS ORDERED: PROPOFOL 20 ML ONE (15:49)
[2023-12-18] MEDS ORDERED: fentaNYL 50 mcg/mL 1 mL Vial ONE (15:50)
[2023-12-18] MEDS ORDERED: Rocuronium Bromide 10 MG/ML (10ML VIAL) ONE (15:50)
[2023-12-18] MEDS ORDERED: CEFAZOLIN 2 GM VIAL ONE (15:55)
[2023-12-18] MEDS ORDERED: Ondansetron PF 4 MG/2 ML Vial ONE ×2 (16:13→18:06)
[2023-12-18] MEDS ORDERED: Dexamethasone 4 mg/ml Vial ONE ×2 (16:13→18:06)
[2023-12-18] MEDS ORDERED: SUGAMMADEX SODIUM 200 MG/2 ML VIAL ONE ×2 (18:05→18:06)
[2023-12-18] MEDS: Morphine 2 MG/ML VIAL SLOW IVP PRN (20:31)
[2023-12-18] MEDS: Gabapentin 300 MG CAP PO SCH (22:26)
[2023-12-18] MEDS: Atorvastatin Calcium 20 MG TAB PO SCH (22:26)
[2023-12-18] MEDS: Famotidine/PF 20 mg/2ml Vial SLOW IVP SCH (22:28)
[2023-12-18] MEDS: busPIRone HCl 15 MG TAB PO SCH (22:38)
[2023-12-18] MEDS: Metoclopramide HCl 10 MG TAB PO SCH (22:38)
[2023-12-18] MEDS: Cyclobenzaprine 10 MG TAB PO SCH (22:38)
[2023-12-19] MEDS: Levothyroxine Sodium 50 MCG TAB PO SCH (06:17)
[2023-12-19] MEDS: Escitalopram Oxalate 10 mg Tablet PO SCH (09:10)
[2023-12-19] MEDS: Ferrous Sulfate 325 MG TAB PO SCH (09:10)
[2023-12-19] MEDS: Atenolol 25 MG TAB PO SCH (09:11)
[2023-12-19 13:29] VITALS: BP 137/59; TEMP 97.4
[2023-12-19] MEDS ORDERED: Enoxaparin 40 MG (0.4 mL) SYRINGE SC SCH (21:00)
== END 2023-12-19 16:00 | disposition home or self-care (01) ==
LOC: CSHERS 20:37 → CSHTELE 12-18 01:07
PROVIDERS: ADMIT Surgery; ATTEND Surgery
PROC: 0FT44ZZ Resection of Gallbladder, Percutaneous Endoscopic Approach (ICD-10-PCS; principal; 2023-12-18)
DX: K81.0 Acute cholecystitis (principal); K82.A1 Gangrene of gallbladder in cholecystitis; K66.0 Peritoneal adhesions (postprocedural) (postinfection); K21.9 Gastro-esophageal reflux disease without esophagitis; E03.9 Hypothyroidism, unspecified; E78.5 Hyperlipidemia, unspecified; Z88.5 Allergy status to narcotic agent; Z91.041 Radiographic dye allergy status; Z88.6 Allergy status to analgesic agent; Z79.899 Other long term (current) drug therapy; Z79.890 Hormone replacement therapy; Z90.710 Acquired absence of both cervix and uterus; Z88.2 Allergy status to sulfonamides; Z91.048 Other nonmedicinal substance allergy status; Z88.1 Allergy status to other antibiotic agents; Z88.8 Allergy status to other drugs, medicaments and biological substances
CPT/HCPCS: 47562; 76705; 80053; 83690; 85025; 94760; 94762; 96365; 96375; 96376; 99285; C1889; G0378 ×3; J0171; J3010; 88304; J0665; J1100; J1885; J2272; J2405; J2543; J2704; J3480; J7050; S0028

== ENCOUNTER 2025-06-25 10:17 | Outpatient (CLI) | payer MEDICARE, BC | END 2025-06-25 10:18 | disposition home or self-care (01) | LOC: CSHMAMMO 10:17 | PROVIDERS: ATTEND Family Medicine | DX: Z12.31 Encounter for screening mammogram for malignant neoplasm of breast (principal); Z98.890 Other specified postprocedural states | CPT/HCPCS: 77063; 77067 ==